=== PATIENT | male | born 2000 | race Two or more races ===

== ENCOUNTER 2023-03-10 17:33 | Emergency (ER) | payer BC, SELFPAY ==
--- NOTE | ~2023-03-10 | XR_ITS ---
EXAM: XR elbow LT min 3V DATE: 03/10/2023 17:58 HISTORY: pain/redness/swelling posterior lt elbow no injury . COMPARISON: None available. FINDINGS: Normal mineralization. No fracture or dislocation. No lytic or blastic lesion. Joint space s are maintained. No erosion or periosteal change. Posterior soft tissue swelling. IMPRESSION: No acute osseous finding in the left elbow. Reviewed, dictated and finalized at location K.
--- NOTE | 2023-03-10 17:40 | ED.EXTPRO ---
HPI - Extremity Problem General Chief complaint: Extremity Problem,Nontraumatic Stated complaint: L ELBOW REDNESS/SWELLING Time Seen by Provider: 03/10/23 18:07 Source: patient, RN notes reviewed and old records reviewed Mode of arrival: ambulatory Limitations: no limitations History of Present Illness HPI Narrative: 22-year-old male presents to the [facility] with his mom with complaints of left elbow redness, swelling that started last night. has a scabbed over area to the lateral aspect of the area. No fluctuance noted. Increased warmth. Pain when bending. Full range of motion of the shoulder, elbow and wrist. Positive pedal pulse. Sensation intact in all 5 fingers capillary refill under 2 seconds has Related Data Allergies Allergy/AdvReac Type Severity Reaction Status Date / Time No Known Allergies Allergy Verified 03/10/23 17:47 Review of Systems Review of Systems: All systems reviewed & are unremarkable except as noted in HPI and below Constitutional: Constitutional: Reports no additional constitutional complaints Eyes: Eyes: Reports no additional eye complaints ENT: Reports system reviewed and no additional complaints, except as documented Cardiovascular: Cardiovascular: Reports no additional cardiovascular complaints, Denies chest pain and Denies dyspnea Respiratory: Respiratory: Reports no additional respiratory complaints, Denies chest congestion, Denies cough and Denies dyspnea Gastrointestinal: Gastrointestinal: Reports no additional gastrointestinal complaints, Denies abdominal pain, Denies nausea and Denies vomiting Musculoskeletal: Musculoskeletal: Reports no additional musculoskeletal complaints Integumentary/Breasts: Skin/Breast: Reports as per HPI Neurologic: Reports system reviewed and no additional complaints, except as documented Psychiatric: Psychiatric: Reports no additional psychiatric complaints Allergic/Immunologic: Allergic/Immunologic: Reports no additional allergic/immunologic complaints PMFSH Social History Social History Smoking status: Never smoker Alcohol intake: never Comments At the time of my signature, I reviewed and agree with the nursing past medical, surgical, social, and family history. There is no relevant family history pertinent to the patient complaint. Exam Const: General: cooperative, healthy appearing, comfortable, no acute distress, well developed, alert and well nourished Nutritional Appearance: well nourished Orientation/consciousness: patient oriented x3 Limitations: no limitations HENMT: Head: normal to inspection Ears: hearing grossly normal bilaterally and external ears normal Face/Nose/Sinus: Normal external nose present, Normal nares present, Normal nasal mucous membranes and turbinates present and normal facial exam Face and sinus: normal facial exam Eyes: General: appearance normal, both eyes and all related structures Alignment and Position: alignment normal Periorbital: periorbital findings normal Pupils: Equal, round and reactive pupils present EOM: EOMs intact bilaterally Neck: Neck: normal visual inspection, full ROM, no lymphadenopathy and no meningeal signs Chest: Chest palpation & inspection: normal inspection of the chest Resp: Effort & Inspection: normal respiratory effort and able to speak in complete sentences Auscultation: clear to auscultation bilaterally, no crackles, no rales, no rhonchi and no wheezes Cardio: Rate: regular rate Rhythm: regular rhythm Back/Spine/Pelvis: Cervical Spine: cervical ROM normal Thoracic/Lumbar Spine: No thoracic spinal tenderness Skin: General skin exam: normal color and no rashes or lesions noted Lesions: no lesions Rashes: no rashes Other: scabbed over area 0.5 cm by 0.5 cm, erythema 7 x 9 cm. Increased warmth without fluctuance. mild swelling lateral left elbow Neuro: General: patient oriented x3, gait normal, tone jani
[2023-03-10 17:47] VITALS: BP 125/80; PULSE 93; RESP 16; TEMP 37.1; O2SAT 100
== END 2023-03-10 18:30 | disposition home or self-care (01) ==
PROVIDERS: Emergency Provider Nurse Practitioner; PCP Family Medicine
DX: L03.114 Cellulitis of left upper limb (principal)
CPT/HCPCS: 73080; 99213; G0463

== ENCOUNTER 2025-08-14 09:27 | Outpatient (CLI) | payer BC, SELFPAY ==
--- NOTE | ~2025-08-14 | XR_ITS ---
EXAMINATION: XR wrist RT min 3V, 08/14/2025 9:49 [facility]INE SPECIALIST HISTORY: M2Pain in right wrist since March after lifting a pole COMPARISON: No comparisons available. Findings: No acute fracture or malalignment. No significant degenerative changes. Soft tissues unremarkable. Impression: No acute fracture or malalignment. Reviewed, dictated and finalized at location P. SPECIALIST Impression: No acute fracture or malalignment.
== END 2025-08-14 09:28 | disposition home or self-care (01) ==
LOC: GOSHIMG 09:27
PROVIDERS: PCP Family Medicine; Visit Provider Nurse Practitioner Family
DX: M25.531 Pain in right wrist (principal)
CPT/HCPCS: 73110

== ENCOUNTER 2025-09-10 08:05 | Emergency (ER) | payer BC, SELFPAY ==
--- NOTE | 2025-09-10 08:06 | ED.EYEPROB ---
HPI - Eye Problem General Chief complaint: Eye Problems Stated complaint: [facility] Time Seen by Provider: 09/10/25 08:06 Source: patient Mode of arrival: ambulatory Limitations: no limitations History of Present Illness HPI Narrative: patient is a 24-year-old male who presents with bilateral eye redness, drainage and irritation for 2 days. Patient reports eyes are matted shut in the morning. Denies any pain or blurred vision. Related Data Allergies Allergy/AdvReac Type Severity Reaction Status Date / Time No Known Allergies Allergy Verified 08/28/25 09:57 Review of Systems Review of Systems: All systems reviewed & are unremarkable except as noted in HPI and below Constitutional: Constitutional: Denies body ache(s), Denies fever(s), Denies headache(s), Denies malaise and Denies weakness Eyes: Eyes: Denies blurry vision, Reports eye discharge, Reports irritation, Reports itchy eyes, Denies loss of vision and Denies eye pain ENT: Denies otalgia, Denies headache(s), Denies nasal discharge, Denies sinus pain and Denies sore throat Cardiovascular: Cardiovascular: Denies chest pain, Denies irregular heart rhythm and Denies dyspnea Respiratory: Respiratory: Denies dyspnea Gastrointestinal: Gastrointestinal: Denies abdominal pain, Denies diarrhea, Denies nausea and Denies vomiting Musculoskeletal: Musculoskeletal: Denies back pain, Denies myalgias and Denies arthralgias Integumentary/Breasts: Skin/Breast: Denies pruritus and Denies rash Neurologic: Denies headache(s), Denies loss of vision and Denies weakness Psychiatric: Psychiatric: Reports no additional psychiatric complaints Allergic/Immunologic: Allergic/Immunologic: Reports itchy eyes PMFSH Social History Social History Smoking status: Never smoker Alcohol intake: never Comments At time of signature, agree with nursing past medical, surgical, social and family history. There is no relevant family history pertinent to the presenting complaint. Exam Const: General: cooperative, healthy appearing, comfortable, no acute distress and well nourished Nutritional Appearance: well nourished Orientation/consciousness: patient oriented x3 Limitations: no limitations HENMT: Head: normal to inspection, normocephalic and atraumatic Ears: external ears normal Face/Nose/Sinus: Normal external nose present, normal facial exam and face symmetric Face and sinus: normal facial exam and face symmetric Mouth: Yes lip normal Eyes: General: appearance normal, both eyes and all related structures Visual Hill: normal visual hill by confrontation Alignment and Position: alignment normal and position normal Periorbital: periorbital findings normal Eyelids: eyelids normal Conjunctivae: conjunctival abnormality bilateral conjunctival injection diffuse and discharge mucoid Sclera: scleral abnormality right scleral injection diffuse Pupils: Equal, round and reactive pupils present EOM: EOMs intact bilaterally Direct Ophthalmoscopy: no photophobia Other: No hyphema, no foreign body under the lids. Neck: Neck: normal visual inspection, full ROM, no lymphadenopathy and no meningeal signs Chest: Chest palpation & inspection: normal inspection of the chest Resp: Effort & Inspection: normal respiratory effort and able to speak in complete sentences Auscultation: clear to auscultation bilaterally Cardio: Rate: regular rate Rhythm: regular rhythm Heart sounds: S1 normal heart sound present and S2 normal heart sound present GI: Inspection: normal to inspection Skin: General skin exam: normal color and no rashes or lesions noted Neuro: General: patient oriented x3, moves all extremities and no meningeal signs Cranial nerves: Yes Equal, round and reactive pupils present Speech: normal speech Gait exam (Neuro): Normal gait present Extrem: General: normal to inspection, full ROM and no edema Psych: Appearance: grossly normal and well kempt Mental Status: mental status grossly normal Speech and movement: Normal speech and movement present Affect: normal affect Attitude: cooperative Thought process: Normal thought process present Course Course Emergency Course: Patient is aware of diagnosis, understands and agrees to treatment plan. Anticipatory guidance given. Patient agrees to follow-up as directed and is aware of reasons to seek care at the emergency department. Portions of this record may have been created with voice recognition software Level of Care: Express Care Visit Vital Signs Vital signs: Vital Signs Temperature 36.1 C L 09/10/25 08:14 Pulse Rate 76 09/10/25 08:14 Respiratory Rate 18 09/10/25 08:14 Blood Pressure 121/84 09/10/25 08:14 Pulse Oximetry 99 09/10/25 08:14 Temperature 36.1 C L 09/10/25 08:14 Pulse Rate 76 09/10/25 08:14 Respiratory Rate 18 09/10/25 08:14 Blood Pressure 121/84 09/10/25 08:14 Pulse Oximetry 99 09/10/25 08:14 [facility] Narrative Medical decision making narrative: exam consistent with conjunctivitis. Antibiotic drops given along with education on cleaning eyes. Pt well hydrated appearing, in no respiratory distress, hemodynamically stable. Recommend supportive care. The patient is stable at time of discharge the clinical impression was discussed and the patient was given the opportunity to ask questions, which were addressed as completely as possible given the information available at present. Anticipatory guidance and return to care precautions were discussed and the importance of primary care follow-up was stressed and encouraged. The patient voiced understanding of the plan, indications to return, and the need for follow-up. Exam findings show no acute concerns or changes Patient is appropriate for outpatient treatment and follow-up. Differential Diagnosis Differential Diagnosis: conjunctivitis, blepharitis, stye, chalazion, less likely orbital cellulitis Medical Records I have reviewed the following patient records and this information was taken into consideration when formulating the assessment and plan.: previous clinic visits Discharge Plan Discharge Clinical Impression: Conjunctivitis Qualifiers: Conjunctivitis type: acute Acute conjunctivitis type: bacterial Laterality: bilateral Qualified Code(s): H10.33 - Unspecified acute conjunctivitis, bilateral Patient Disposition: Home Condition: Stable Instructions: Conjunctivitis (ED) Additional Instructions: Eye drops as prescribed. -Do this for 3 to 4 days until all redness and discharge has disappeared. -Cold compresses to the affected eye for comfort -May need warm compresses to remove debris in the morning -When cleaning the eyes used a washcloth/cotton ball in one direction then change washcloths/cotton ball before using it on another eye. -Do not share medicine--do not touch the eye with the medicine -Alternate or take Tylenol or ibuprofen as directed in the bottle for pain -Avoid screen time--television, computer, tablet or phone. -Practice good handwashing and hygiene to prevent spread of infection Follow-up with PCP or button sewing machine operator if condition is not improving in 2-3days. Go to the emergency room if you have pain behind your eye, pressure behind her eye, difficulty seeing, or other severe symptoms Patient Language: Chinese Prescriptions: New ofloxacin 0.3 % drops See Rx Instructions .ROUTE .COMPLEX Qty: 10 0RF Rx Instructions: put 1-2 drps into each eye every 2-4 h x 2 days, then 1-2 drps 4 times/day days 3-7 Follow-up/Referrals: Mary German, FLAVIA, CENTRAL SUPPLY TECHNICIAN SUPERVISOR-C [Primary Care Provider, Family Practice] - 3 Days Stand Alone Forms: Work/School Release IP Time of Disposition: 08:13
[2025-09-10 08:14] VITALS: BP 121/84; PULSE 76; RESP 18; TEMP 36.1; O2SAT 99
== END 2025-09-10 08:15 | disposition home or self-care (01) ==
PROVIDERS: Emergency Provider Nurse Practitioner Family; PCP Nurse Practitioner Family
DX: H10.33 Unspecified acute conjunctivitis, bilateral (principal)
CPT/HCPCS: 99213; G0463